=== PATIENT | male | born 1960 | race Caucasian/White ===

== ENCOUNTER 2018-08-11 07:30 | Inpatient (IN) ==
[2018-10-20] MEDS ORDERED: Sodium Chloride 0.9% 250 ML ONE (05:48)
[2018-10-20] MEDS ORDERED: LIDOCAINE W/ SODIUM BICARB 0.5 ML SYR ONE (05:48)
[2018-10-20] MEDS ORDERED: ceFAZolin Inj 2gm (Premix) 2 GM/50 ML BAG IV ONE ×3 (05:48→13:37)
[2018-10-20] MEDS ORDERED: Lactated Ringers 1,000 ML PRIMARY IV ONE ×2 (05:48→06:00)
[2018-10-20] MEDS ORDERED: Vancomycin Inj 1gm vial ONE ×2 (05:48→06:49)
[2018-10-20] MEDS ORDERED: Nasal Sanitizer POPSWAB ampule 3 AMP (Nozin) PREOP DOSE ENOS SCH (06:00)
[2018-10-20] MEDS ORDERED: LIDOCAINE W/ SODIUM BICARB 0.5 ML SYR SUBD ONE (06:00)
[2018-10-20] MEDS ORDERED: Sodium Chloride 0.9% vial 20 ML ONE (06:48)
[2018-10-20] MEDS ORDERED: Gentamicin Inj 40 MG/ML VIAL ONE (06:49)
[2018-10-20] MEDS ORDERED: BACITRACIN 50,000 UNIT VIAL IRRIG ONE ×2 (06:50→11:12)
[2018-10-20] MEDS ORDERED: BUPIVACAINE 0.25% W/ EPI - 10 ML VIAL ONE ×3 (06:56→08:14)
[2018-10-20 07:23] LABS: BILIRUBIN,URINE NEGATIVE (NEG); CLARITY,URINE CLEAR (CLEAR); COLOR,URINE YELLOW (Y); GLUCOSE, URINE (UA) NEGATIVE (NEG); OCCULT BLOOD,URINE NEGATIVE (NEG); PROTEIN,URINE NEGATIVE (NEG); UROBILINOGEN,URINE 0.2 EU/dL (0.2)
[2018-10-20 07:24] LABS: URINE SAMPLE TYPE CLEAN CATCH URINE
[2018-10-20] MEDS ORDERED: LIDOCAINE HCL 2 % 10 ML JELLY URO-JECT TOPICAL ONE (07:31)
[2018-10-20] MEDS ORDERED: PROPOFOL 10 MG/1 ML (200 MG/20 ML) VIAL IV ONE ×3 (07:33→12:22)
[2018-10-20] MEDS ORDERED: SUCCINYLCHOLINE CHLORIDE 20 MG/1 ML - 10 ML ONE (07:35)
[2018-10-20] MEDS ORDERED: KETAMINE HCL 100 MG/2 ML SYRINGE IV ONE (07:36)
[2018-10-20] MEDS ORDERED: ROCURONIUM 10 MG/1 ML - 5 ML VIAL IVP ONE (07:36)
[2018-10-20] MEDS ORDERED: Hetastarch 6% + NS 500 ML IV ONE (08:04)
[2018-10-20] MEDS ORDERED: TRANEXAMIC ACID 1,000 MG / 10 ML VIAL ONE (08:15)
[2018-10-20] MEDS ORDERED: DEXAMETHASONE PF 10 MG/1 ML VIAL ONE (08:16)
[2018-10-20] MEDS ORDERED: METOPROLOL TARTRATE 5 MG/5 ML VIAL ONE (08:17)
[2018-10-20] MEDS ORDERED: MAGNESIUM SULFATE ONE (08:17)
[2018-10-20] MEDS ORDERED: LIDOCAINE HCL 2 % 10 ML JELLY URO-JECT TOPICAL PRN (08:26)
[2018-10-20] MEDS ORDERED: VECURONIUM BROMIDE 10 MG VIAL ONE (08:49)
[2018-10-20] MEDS ORDERED: HYDROmorphone 2 MG/1 ML ONE ×3 (08:53→15:14)
[2018-10-20] MEDS ORDERED: Sodium Chloride 0.9% vial 10 ML ONE ×2 (11:12→13:20)
[2018-10-20] MEDS ORDERED: BUPivacaine Liposome/PF (Exparel) Inj 20ml vial INFIL ONE (13:21)
[2018-10-20] MEDS ORDERED: BUPivacaine Inj 0.25% PF - 10ml vial ONE (13:22)
[2018-10-20] MEDS ORDERED: ceFAZolin 1 GM VIAL IVP ONE (13:47)
[2018-10-20] MEDS ORDERED: KETOROLAC 30 MG/1 ML VIAL ONE (14:21)
[2018-10-20] MEDS ORDERED: HYDROmorphone 2 MG/1 ML IVP PRN ×2 (15:14→15:15)
--- NOTE | 2018-10-20 15:14 | CRNA.PROGR ---
Anesthesia Time - Procedure/Recovery Time Start Date: 10/20/18 End Date: 10/20/18 - Other Weight: 92.079 kg Height: 5 ft 10 in Body Mass Index (BMI): 29.1 Anesthesia Type: General Anesthesia : ET (pt with conjunctiva swelling, some face swelling post op secondary to position prone more than 8hrs)
[2018-10-20] MEDS ORDERED: PROMETHAZINE 25 MG/1 ML VIAL IM PRN ×2 (15:15→16:16)
[2018-10-20] MEDS ORDERED: fentaNYL Inj 100 MCG/2 ML VIAL IVP PRN (15:15)
[2018-10-20] MEDS ORDERED: LIDOCAINE W/ SODIUM BICARB 0.5 ML SYR SUBD PRN (15:15)
--- NOTE | 2018-10-20 15:15 | CRNA.PROGR ---
Anesthesia Recovery Phase I - Post Anesthesia Evaluation Patient's Condition on Arrival in Phase I: Stable Patient's Condition on Arrival in Phase II: Stable Pain Level: 5 (patient stable at PACU admit)
[2018-10-20] MEDS ORDERED: MAGNESIUM 400 MG/5 ML - 30 ML (MILK OF MAGNESIA) PO PRN (16:16)
[2018-10-20] MEDS ORDERED: DOCUSATE 100 MG CAPSULE PO PRN (16:16)
[2018-10-20] MEDS ORDERED: Ondansetron ODT Tab 4 MG TAB PO PRN (16:16)
[2018-10-20] MEDS ORDERED: MAGNESIUM CITRATE 296 ML SOLUTION PO PRN (16:16)
[2018-10-20] MEDS ORDERED: Fleet Enema 133ml RECTAL PRN (16:16)
[2018-10-20] MEDS ORDERED: BISACODYL 5 MG TABLET PO PRN (16:16)
[2018-10-20] MEDS ORDERED: ONDANSETRON 4 MG/2 ML VIAL IVP PRN (16:16)
[2018-10-20] MEDS ORDERED: oxyCODONE/APAP 7.5/325 Tab 1 TAB TAB PO PRN (16:16)
[2018-10-20] MEDS ORDERED: DIAZEPAM 10 MG/2 ML (5 MG/1 ML) CARPUJECT IVP PRN (16:16)
[2018-10-20] MEDS ORDERED: Metoclopramide Inj 10 MG/2 ML VIAL IVP PRN (16:16)
[2018-10-20] MEDS ORDERED: MORPHINE SULFATE 2 MG/1 ML IVP PRN (16:16)
[2018-10-20] MEDS ORDERED: Vancomycin-PHA to Dose IV SCH (16:16)
[2018-10-20] MEDS ORDERED: DIAZEPAM 10 MG TABLET PO PRN (16:16)
[2018-10-20] MEDS ORDERED: oxyCODONE-ACETAMINOPHEN 5-325 TAB PO PRN (16:16)
[2018-10-20] MEDS ORDERED: Prochlorperazine Edisylate Inj 10mg/2ml vial IVP PRN (16:16)
--- NOTE | 2018-10-20 17:16 | CONSULT ---
Consult Note - Consult Consult Date: 10/20/18 Reason for Consult: Other (Postoperative consultation Dr. Baca) Requesting Physician: Dr. Baca Primary Care Provider: Dr. Anoop Baca MD - History of Present Illness History of Present Illness: This is a 58 years old male with medical history significant for history of sleep apnea on CPAP at night, history of previous 2 back surgeries he had an MRI done last year which showed moderate degenerative disc disease at L1-L2 and L5- S1 there is multi-level lumbar spondylosis, facet arthropathy and hypertrophy there is large recurrent L4-5 herniated nucleus pulposus so he came in today to have transforaminal lumbar interbody and posterolateral instrumented fusion and was done by Dr. Baca. The hospitalist service were consulted for management medical issues. Patient was seen postoperatively. He was denying complaint. No nausea, no chest pain, no shortness of breath. No dizziness. Past Medical History Medical History: 1. History of sleep apnea on CPAP at night Surgical History: 1. History of 2 previous back surgeries Family History: Reviewed an Not Pertinent Past Social History: Smokes 2 packs a day, drinks 6 beers a day, no drugs. Tobacco Use: Current Every Day Smoker In the Past 12 Months, Have Used or Abuse Any of the Following Substance: None Review of Systems - Review of Systems All Systems: Reviewed & No Additional Complaints Except as Stated Medication / Allergies Home Medications: Home Medications Medication Instructions Recorded Confirmed Type cyclobenzaprine 5 mg tablet 5 mg PO TID PRN 05/07/18 10/20/18 History hydrocodone 5 mg-acetaminophen 325 1 tab PO QID PRN 05/07/18 10/20/18 History mg tablet Allergies/Adverse Reactions: Allergies Allergy/AdvReac Type Severity Reaction Status Date / Time No Known Allergies Allergy Verified 10/20/18 16:21 Exam - Vitals Vital Signs: Vital Signs Temperature 98.2 F Pulse Rate [Telemetry] 122 Pulse Rate 106 Respiratory Rate 12 Blood Pressure 107/75 Pulse Ox 96 Oxygen Flow Rate 3 liters nasal cannula Oxygen Delivery Method Room Air Height 5 ft 10 in Weight 203 lb - General General Appearance: No Acute Distress, Cooperative - Head Head Exam: Normal Inspection - Eye Eye Exam: POSITIVE: Normal Appearance - ENT ENT Exam: POSITIVE: Normal Exam - Neck Neck Exam: Normal Inspection - Respiratory Respiratory Exam: POSITIVE: Clear to Auscultation - Bilaterally - Cardiovascular Cardiovascular Exam: POSITIVE: RRR - GI/Abdominal GI/Abdominal Exam: POSITIVE: Normal Bowel Sounds, Non Tender, Non Distended, Soft, No Organomegaly - Rectal Rectal Exam: POSITIVE: Deferred - External Exam: POSITIVE: Deferred - Extremities Extremities Exam: POSITIVE: Normal Inspection Additional Extremities Exam Details: SCDs applied - Back Back Exam: POSITIVE: Normal Inspection - Neurological Neurological Exam: POSITIVE: Alert, Oriented x 3, CN II-XII Intact, No Facial Droop, Speech Intact / Clear - Psychiatric Psychiatric Exam: POSITIVE: Normal Affect Assessment and Plan - Patient Problems (1) History of back surgery Current Visit: Yes Status: Acute Comment: Patient status post lumbar fusion, he is denying complaints. will Provide supportive care and deal with complication if they develop. Currently patient is in no distress. Dr. Baca for wrote for pain medication. Regarding his drinking he said he never had DTs or withdrawal before will watch for symptoms of withdrawal. Code(s): Z98.890 - Other specified postprocedural states
[2018-10-20] MEDS: oxyCODONE/APAP 10/325 Tab 1 EACH TAB PO PRN ×2 (17:30→21:22)
[2018-10-20] MEDS: ceFAZolin Inj 1 GM in Sodium Chloride 0.9% 100 ML IV SCH (21:22)
[2018-10-21] MEDS: oxyCODONE/APAP 10/325 Tab 1 EACH TAB PO PRN ×6 (01:08→21:45)
[2018-10-21] MEDS: ceFAZolin Inj 1 GM in Sodium Chloride 0.9% 100 ML IV SCH (03:51)
--- NOTE | 2018-10-21 05:07 | GEN.OPNOTE ---
Operative Note Surgery Date: 10/20/18 Preoperative Diagnosis: 1. Status post work related injury. 2. Status post right L4-5 microlumbar discectomy - 11/2011. 3. Status post redo right L4-5 microlumbar discectomy - 06/09/2017. 4. Large recurrent right L4-5 herniated nucleus pulposus. 5. Focal advanced degenerative disc disease L4-5. 6. Focal advanced facet arthropathy/hypertrophy L4-5. Postoperative Diagnosis: 1. Status post work related injury. 2. Status post right L4-5 microlumbar discectomy - 11/2011. 3. Status post redo right L4-5 microlumbar discectomy - 06/09/2017. 4. Large recurrent right L4-5 herniated nucleus pulposus. 5. Focal advanced degenerative disc disease L4-5. 6. Focal advanced facet arthropathy/hypertrophy L4-5. Procedure: 1.) Partial redo L4 laminectomy with medial facetectomies and foraminotomies for decompression of the severe central canal, lateral recess, and neuroforaminal stenosis at the L4-5 level with removal of a massive recurrent right L4-5 disc herniation. (CPT code: 28809-81-42). 2.) Arthrodesis, combined posterolateral and posterior interbody technique, L4-5. (CPT code: 97686). 3.) Insertion 10 mm x 11 mm x [address] titanium lumbar interbody cage filled in the center with autograft into the L4-5 interspace for fusion of the L4-5 interspace. (CPT code: 21763). 4.) Non- segmental posterolateral instrumentation L4-5 using the [employer] Mallorie 3 pedicle screw and bill system. (CPT code: 05291). 5.) Use of autograft, harvested through the same incision, cleaned of soft tissue and morselized, for interbody and posterolateral fusion. (CPT code: 44571). 6.) Use of 20cc [employer] Vitoss Bimodal synthetic bone fusion product/promotor (implantable allograft), 2 cc of Tamika Biologics Active Matrix (implantable allograft), and 30 cc [employer] BIO DBM Putty Plus cancelleous (implantable allograft) for interbody and posterolateral fusion. (CPT code: 70912). 7.) Use of the [employer] computer assisted neuronavigation system for cannulization of the L4 and L5 pedicles bilaterally for the subsequent placement of the L4 and L5 pedicle screws bilaterally. (CPT code: 02199). 8.) Use of intra-operative fluoroscopy for localization of the correct surgical level and for final confirmation of the position of the L4-5 intervertebral cage and final confirmation of the position of the L4-5 posterolateral hardware elements. 9.) Use of intra-operative neuromonitoring including free running EMG's, triggered EMG's, and SSEP's. Surgeon: Anoop Baca MD Electroencephalograph Technician: MIGUEL Hunt Anesthesia Provider: Dank Ellsworth MD Anesthesia Type: General Estimated Blood Loss (mL): 600 Fluids: See anesthesia record Pathology: None Indications: Mr. Aguiar is a 58 year old gentleman status post a work injury. For persistent symptoms from his work injury, Dr. Mejia performed a right L4-5 microlumbar discectomy on 11/2011. He had a subsequent re-rupture of the the disc and underwent a redo right L4-5 microlumbar discectomy on 06/09/17 that I performed. Mr. Aguiar has continued to have low back and right leg pain. He has tingling and numbness in his right leg down into his toes. He states he has weakness in his right leg, he is only able to stand for 10-15 minutes before needing to sit and rest. Mr. Aguiar's lumbar MRI demonstrates moderate degenerative disc disease at L1-2 and L5-S1, mild degenerative disc disease at L2-3 and L3-4, but with advanced focal degenerative disc disease at L4-5. There is multilevel lumbar spondylosis, with facet arthropathy and hyperthrophy mild at L2-3, moderate at L3-4, advanced at L4-5, mild to moderate at L5-S1. There is a large recurrent right L4-5 herniated nucleus propulsis filling the lateral recess and producing overall moderate spinal canal stenosis at this level. Mr. Aguiar was scheduled for his surgery on 08/11/18, but his pre-op blood work showed he had a low platelet level. His surgery was cancelled until he could follow up with his primary. Mr. Aguiar presents today for his surgical procedure after being cleared again for a L4-5 transforaminal lumbar interbody fusion and posterolateral instrumented fusion. Findings: 1.) Massive recurrent right L4-5 herniated nucleus propulsis. 2.) Severe L4-5 central canal stenosis. 3.) Bilateral L4-5 facet arthropathy and hypertrophy. 4.) Thickened ligamentum flavum L4-5. Complications: None Operative Summary: Mr. Aguiar was met in the pre-operative area. His surgical history and physical in his chart was reviewed. I reviewed with him the procedure to be performed and we were in agreement on the procedure and this matched what was written on the patient's consent form. I answered any questions that he or his had before he was taken back to the operating room suite. Mr. Aguiar was brought back to the operating room suite. He was put under general anesthesia and intubated by the anesthesia staff. He had a Evans catheter placed in his bladder for the procedure. He had pneumatic compression hose placed on his lower legs bilaterally. Mr. Aguiar was carefully rolled over onto the Arian surgical table. His arms were gently positioned upwards with his shoulders abducted less than 90. His arms were well-padded with foam padding on top of the padding the surgical armboards. The region of his chest and axilla was checked bilaterally to make sure that there were no pressure points over the region of the brachial plexus bilaterally. His nipples were checked be below the chest pad of the Arian table with no pressure points. All bony prominences were well padded. His Evans catheter was checked be free from kinks. His pneumatic compression hose was attached and pneumatic compression device. The C-arm fluoroscopy unit was used to help determine the extension needed to the scar from Mr. Aguiar' previous surgeries for the approach to the intended surgical level. The skin was marked with a skin marker incorporating his scar from his previous surgeries and crosshatches were made across the marked incision the marker as well. Mr. Aguiar was prepped and draped in the usual and standard fashion. He was given 900 mg of Cleocin and a gram of vancomycin IV for perioperative antibiosis. He was given 10 mg of Decadron IV. A standard surgical timeout was performed identifying the correct patient, the correct procedure, and the correct equipment being available for the procedure. The intended skin incision was injected subcutaneously with quarter percent Marcaine with 1 in 200,000 epinephrine. 20 mL of local anesthetic was used. The skin was incised with a 10 blade scalpel and all dermal and superficial bleeding points were controlled with bipolar cautery. Dissection was continued down through the subcutaneous tissue/scar tissue to the lumbar fascia. The lumbar fascia was incised along the borders of the spinous processes and subperiosteal dissection was performed down the spinous processes and out over the lamina with Bovie cautery. When the inferior aspect of the lamina was identified a [place] 4 was placed underneath the lamina and the level was localized with lateral fluoroscopy. Continued subperiosteal dissection was performed until the final exposure was of the inferior aspect the L3 lamina of the L4 lamina and the L5 lamina; are was taken not to enter the pervious hemilaminotomy/medial facetectomy on the right. The dissection was continued laterally over the L3-4 and L4-5 and L5-S1 facet joints and out laterally over the L4 and L5 transverse processes. Cerebellar Gelpi retractors were placed for self-retaining retraction. Soft tissue was cleaned over the posterior aspect of the spine using Bovie cautery as well as a large Leksell rongeur. Extensive decortication of the L4 and L5 transverse processes as well as the lateral aspect of the L3-4 facet joint and the lateral and posterior aspect of the L4-5 facet joint after removing the hypertrophied posterior aspect of the L4-5 facet joint with a large Leksell rongeur bilaterally was performed. The L5 lamina was decorticated as well. All decortication was performed with a high-speed [employer] electric drill with a matchstick bit. The bone dust created was collected and saved to be used as autograft for the fusion portion of the procedure. The Maryjo neuro navigation reference arc was securely attached to the L3 spinous process and a spin was performed with the [employer] 3-D fluoroscopy unit. The Tamaroa neuro navigation pedicle probe was then used to cannulate the L4 and L5 pedicles bilaterally. A Jamshidi needle was then inserted into the left L4 pedicle and 5cc of vertebral body bone marrow was collected and used to saturate 10 mL of the Tamaroa Vitoss synthetic bone product (with the Vitoss also saturated with 5 cc of Tamika Biologic Active Matrix (implantable allograft)), intended for the posterior lateral fusion. The internal aspects of the L4 and L5 pedicles were palpated bilaterally with a small ball-tip instrument. The pedicles were then tapped with the appropriate size Tamaroa Zay 3 pedicle tap. The internal aspect of the pedicles were palpated with a small ball-tip instrument again. The pedicle screws were then placed. 6.5 x 60 mm pedicle screws were placed into the L4 and L5 pedicles bilaterally. Mr. Adair bone was somewhat soft but the pedicle screws obtained good purchase in the pedicle and vertebral body bone at each level bilaterally. The pedicle screws were then interrogated with triggered EMGs all demonstrating sufficiently high impedance with the lowest impedance recording being 26 mm indicating that all the pedicle screws were not in close proximity to nerve structures. Another spin was performed with the [facility] 3-D fluoroscopy unit providing further confirmation that the pedicle screws were indeed confined within the confines of the pedicles at each level bilaterally and that the pedicle screws were all bi- cortical or nearly bi-cortical in purchase as intended. Attention was turned to the decompression portion of the procedure. The caudal aspect of the L4 spinous process was removed with a large Leksell rongeur. The L4 lamina was thinned down with the same instrument. A partial laminectomy of L4 with medial facetectomies and foraminotomies bilaterally was then performed with the [employer] high-speed drill with a matchstick bit as well as with various size Kerrison punches. Tedious dissection was performed to de-tether the thecal sac, exiting L4, and transversing L5 nerve root on the right from their attachments to the bony aspects of the canal from the scar tissue from his two previous hemilaminotomies, medial facetectomies, and discectomies on this side at this level. During the dissection a massive recurrent right L4-5 herniated nucleus propulsis was discovered markedly displacing the thecal sac a nd transversing L5 nerve root posteriorly. The base of the pseudocapsule aound the recurrent disc herniation was punctured with a nerve hook and large fragments of disc material was removed from the pseudocapsule, once all of this disc was removed, disc was removed from the disc space proper with pituitary rongeurs. With the large recurrent disc herniation removed, the thecal sac and the transversing L5 nerve root returned to there normal position within the spinal canal. While dissecting the scar tissue off of the right exiting L4 nerve root there was extruded synovial tissue in the lateral recess/proximal neuroforamen which was removed, decompressing the nerve. The medial facetectomy on the left was extended laterally to provide the proper exposure needed for the interbody fusion intended for this level. The lateral extension of the medial facetectomy was performed with a high-speed drill with a matchstick bit. A [place] 4 instrument was used to carefully dissect the soft tissue adjacent to the takeoff of the L5 nerve root identifying the L4-5 disc space. The Farshad nerve root retractor was used to gently retract the thecal sac and the takeoff the L5 nerve root, uncovering a prominent subligamontous disc herniation on this side. Epidural veins over the disc space were coagulated with bipolar cautery turned down to a low setting and then cut with microscissors. An annulotomy was performed in the L4-5 disc space with a 15 blade scalpel and disc material being removed with a pituitary rongeur. The subligamentous disc material causing the herniation was removed. Additional disc and cartilaginous endplate was loosened in the disc space using the K2 disc space juan david in 1 mm increments from 7 mm disc space shaver to a 9 mm disc space shaver. Between the disc space juan david additional disc material was removed from the interspace using pituitary rongeur. The large Nuris down-biting curet was used to loosen disc laterally in the L4-5 disc space bilaterally with the fragments being removed with a pituitary rongeur. The large Nuris down-biting curet was then used to decorticate the inferior L4 endplate and the superior L5 endplate in the L4-5 interspace. The interspace was then irrigated with bacitracin irrigation. Approximately 3-3.5 cc of Maryjo BIO DBM Putty Plus cancelleous (allograft) was then placed in the interspace and moved anteriorly with a bone tamp. The interspace was then sized for the appropriate size lumbar interbody cage. A 10 mm x 11 mm x [address] titanium lumbar interbody cage was selected and filled in the center with autograft and inserted into the L4-5 interspace using the fur blowing machine attendant. The cage was gently countersunk and rotated with a bone tamp and mallet. The cage obtained good purchase between the L4 and L5 endplates. The final position of the intervertebral cage was confirmed with lateral fluoroscopy. Attention was turned back to the leads rotation portion of the procedure. A 6.0 mm x 35 mm pre-bent Tamaroa Zay 3 titanium bill was selected and placed in the [place]ips of the L4 and L5 pedicle screws bilaterally. Set screws were placed over the rods in the t[place]ips of each of the pedicle screws which were tightened down hand tight initially and then tightened down to their final tightness using the torque/counter torque device. The surgical site was irrigated with hydrogen peroxide solution. The surgical site was then pulse lavaged with 3 L of vancomycin/bacitracin/gentamicin solution. The paraspinous musculature was retracted and 10 mL of Maryjo Vitoss Bimodal synthetic bone product (allograft) saturated with a 5 mL of vertebral body bone marrow and 5 cc of Tamika Biologics Active Matrix was then placed lateral to the hardware construct on each side from the L4 transverse process to over the L5 transverse process bilaterally. The remaining autograft was mixed with the remaining approximately 17 mL of Tamaroa BIO DBM Putty Plus cancelleouus which was then split with half of this product being placed lateral to the hardware construct over the bone chips and Vitoss synthetic bone product from the L4 transverse process to the L5 transverse process bilaterally. An additional 10 cc of Maryjo BIO DBM Putty Plus with cancellous was then split placing 5cc of this product lateral to the hardware on each side from the L4 transverse process to the L5 transverse process. The canal lateral recesses were inspected for any bone chips and any identified were removed with forceps. The canal lateral recesses were then irrigated with a small amount bacitracin irrigation which was subsequently removed with suction. A piece of compressed Gelfoam was then placed across the canal. FloSeal hemostatic agent was then placed over the Gelfoam. The lumbar fascia was closed tightly with #1 Vicryl suture in an interrupted fashion. The surgical site was irrigated again with bacitracin irrigation. The deep subcutaneous tissue and fascia was re-approximated with 2-0 Vicryl suture in an interrupted fashion. 20 mL of Exoperel deluded with 10 mL of 1/4 percent Marcaine was then injected all around the incision in the subcutaneous tissue. The same was then done with the remaining 3 cc of Tamika Biologics Active Matrix. The dermis and superficial subcutaneous tissue was reapproximated with 3-0 Vicryl suture in an inverted interrupted fashion. The Ioban drape was pulled back from the skin edges and the final layer of closure was performed surgical stainless steel ca. The incision was cleansed with bacitracin soaked sponge and then dried with sterile dry sponge. The incision was then dressed with a Mepilex dressing after using skin prep around the incision. All surgical drapes removed from Mr. Aguiar. He was carefully rolled over onto the PACU stretcher. He was awoken and extubated by the anesthesia staff. He was taken the recovery room in stable condition. All surgical counts reported as correct by the scrub and circulating personnel. A physician's assistant food service manager, Mrs. Vani Becerril PA-C, assisted with the procedure including the exposure and closure portions of the procedure. She provided irrigation and suctioning throughout the procedure. She skillfully and carefully retracted the nerve structures during the more critical portions of the procedures such as the discectomy and intervertebral cage placement portions of the procedure.
[2018-10-21 05:11] LABS: BASOPHILS # (AUTO) 0.01 10*3/UL; BASOPHILS % (AUTO) 0.1 % (0-1); EOSINOPHILS # (AUTO) 0.07 10*3/UL; Hematocrit [HCT] 35.5 % (42.0-52.0); Hemoglobin [HGB] 12.1 g/dL (14.0-18.0); MEAN CORPUSCULAR HEMOGLOBIN 35.9 PG (27-31); MEAN CORPUSCULAR HGB CONC 34.1 g/dL (33-37); MEAN CORPUSCULAR VOLUME 105.3 FL (80-90); MEAN PLATELET VOLUME 11.5 FL (7.4-12.2); MONOCYTES # (AUTO) 0.49 10*3/UL (0.3-0.8); MONOCYTES % (AUTO) 6.8 % (5-15); NEUTROPHILS # (AUTO) 5.37 10*3/UL; NEUTROPHILS % (AUTO) 74.1 % (50-80); RED BLOOD COUNT 3.37 10^6/uL (4.70-6.10)
[2018-10-21 05:15] LABS: PLATELET MORPHOLOGY COMMENT NORMAL MORPHOLOGY (NORM); RBC MORPHOLOGY COMMENT NORMAL MORPHOLOGY (NORM); WBC MORPHOLOGY COMMENT NORMAL MORPHOLOGY (NORM)
[2018-10-21 05:17] LABS: BLOOD UREA NITROGEN 9 mg/dL (7-22); BUN/CREATININE RATIO 8.18 (6-20)
--- NOTE | 2018-10-21 05:17 | NEURO.PROG ---
Subjective Post Op Day: 0 Evans Catheter: Yes Flatus: Yes Diet: Regular Ambulating: Yes Additional Details: LATE ENTRY Patient seen in med/surg room last evening at approximately 8:00 pm. Lying comfortably in surgical bed. Surgical pain. Right leg better. Strength improved right leg; dorsiflexion/plantarflexion full/strong bilaterally. PLAN: 1.) Continue post-operative antibiotics. 2.) Continue post-operative pain control. 3.) Advance diet. 4.) Mobilize. Objective : Data - Vital Signs Vital Signs and I&O: Vital Signs - Last Taken Temperature 97.1 F 10/21/18 04:13 Pulse Rate 84 10/21/18 04:13 Respiratory Rate 18 10/21/18 04:13 Blood Pressure 92/58 10/21/18 04:13 Pulse Ox 94 10/21/18 04:59 Intake and Output (24hr x 4 totals) 10/18/18 10/19/18 10/20/18 10/21/18 05:59 05:59 05:59 05:59 Intake Total 6815 / 6815 Output Total 1655 / 1655 Balance 5160 / 5160
--- NOTE | 2018-10-21 06:45 | NEURO.PROG ---
Subjective Post Op Day: 1 Pain Management: PO Evans Catheter: No Diet: Regular Ambulating: Yes Additional Details: Mr. Aguiar is awake and alert. He says his right leg and foot symptoms are improved. His reduced preop dorsi flexion on the right is improved. He ambulated in the ball twice after surgery yesterday. His pain is controlled with po pain meds. His incision is dry and intact and his drainage was 210ml in 12 hours. Will plan to keep the drain today and evaluate later and in am. In view of his thrombocytopenia we will keep his Vena Flow cuffs in place and encourage frequent ambulation. Plan: Mobilize, monitor hemovac drainage and start Flexeril. Objective : Data - Labs CBC and BMP: 10/22/18 04:25 10/21/18 03:55 - Vital Signs Vital Signs and I&O: Vital Signs - Last Taken Temperature 97.1 F 10/21/18 04:13 Pulse Rate 84 10/21/18 04:13 Respiratory Rate 18 10/21/18 04:13 Blood Pressure 92/58 10/21/18 04:13 Pulse Ox 94 10/21/18 04:59 Intake and Output (24hr x 4 totals) 10/19/18 10/20/18 10/21/18 10/22/18 05:59 05:59 05:59 05:59 Intake Total 6815 / 6815 Output Total 1735 / 1735 Balance 5080 / 5080
[2018-10-21] MEDS ORDERED: CYCLOBENZAPRINE 10 MG TABLET PO PRN ×2 (06:46→06:47)
--- NOTE | 2018-10-21 06:52 | NEURO.PROG ---
Subjective Additional Details: A correction on my earlier post op note stated TTP which should have read ITP Objective : Data - Labs CBC and BMP: 10/21/18 03:55 10/21/18 03:55 - Vital Signs Vital Signs and I&O: Vital Signs - Last Taken Temperature 98.1 F 10/21/18 06:42 Pulse Rate 83 10/21/18 06:42 Respiratory Rate 17 10/21/18 06:42 Blood Pressure 104/67 10/21/18 06:42 Pulse Ox 94 10/21/18 06:42 Intake and Output (24hr x 4 totals) 10/19/18 10/20/18 10/21/18 10/22/18 05:59 05:59 05:59 05:59 Intake Total 6815 / 6815 Output Total 1735 / 1735 Balance 5080 / 5080
[2018-10-21] MEDS: PANTOPRAZOLE 40 MG TABLET PO SCH (07:12)
[2018-10-21] MEDS: CYCLOBENZAPRINE 10 MG TABLET PO SCH ×3 (09:10→20:12)
[2018-10-21] MEDS ORDERED: FOLIC ACID 1 MG TABLET PO ONE (11:18)
--- NOTE | 2018-10-21 11:29 | PDOC(PROG) ---
Date of Service: 10/21/18 Time of Service: 11:20 Interval History: Subjective Patient complain from pain in his back and right hip where he was laying on his side. He just got up and he was planning to work with physical therapy. He is denying other symptoms. Objective : Data - Labs CBC and BMP: 10/21/18 03:55 10/21/18 03:55 Objective : Exam - General General Appearance: No Acute Distress, Cooperative - Head Head Exam: Normal Inspection - Eye Eye Exam: Normal Appearance - ENT ENT Exam: Normal Exam - Neck Neck Exam: Normal Inspection - Respiratory Respiratory Exam: Clear to Auscultation - Bilaterally - Cardiovascular Cardiovascular Exam: RRR - GI/Abdominal GI/Abdominal Exam: Normal Bowel Sounds, Non Tender, Non Distended, Soft - Rectal Rectal Exam: Deferred - External Exam: Deferred - Extremities Extremities Exam: Normal Inspection - Back Additional Back Exam Details: He is Wearing a brace. - Neurological Neurological Exam: Alert, Oriented x 3, CN II-XII Intact - Psychiatric Psychiatric Exam: Normal Affect Assessment and Plan - Patient Problems (1) History of back surgery Current Visit: Yes Status: Acute Comment: Continue current pain medication, continue PT OT. Further management per Dr. Baca. Code(s): Z98.890 - Other specified postprocedural states (2) Thrombocytopenia Current Visit: Yes Status: Acute Comment: His platelets on the low side I don't have a previous level but apparently he had a previous measurement and was on the low side but he only told me this today for the first time and he saw an oncologist in [place] who did blood tests and according to him there were negative. This may be secondary to his alcohol intake if what he told me his correct. Will write for folic acid supplment. Code(s): D69.6 - Thrombocytopenia, unspecified
--- NOTE | 2018-10-21 15:40 | PT.PROG ---
Progress Note Progress Note: S. Patient stated that he is feeling good overall. O. Patient performed log roll then donned his brace, Patient ambulated 150 feet then ascended and descended 4 stairs then ambulated 300 feet around the nurses station and back to his room where he was left in his chair with alarm and call light. A. Patient tolerated ambulation and stair training well. He required stand by guard assist. P. Patient has met All goals at this time.
[2018-10-21 16:17] VITALS: RESP 20
--- NOTE | 2018-10-21 16:43 | PTI REPORT ---
Thank you for the referral of Zaire Aguiar. He was seen on 10/21/18 for an inpatient evaluation status post lumbar fusion. SUBJECTIVE: The patient is a 58-year-old male. The patient reports he is having post operative pain but is now having more hip pain due to lying in bed for a prolonged period of time and requests that he be able to get up and walk. This is his third back surgery and he is very familiar with all precautions as well as the back bracing. He also states he is not really comfortable in the back brace that was issued to him today and he is hoping that he will be able to switch at home to one of his thinner, less aggressive back braces from his recent laminectomy. PAST MEDICAL HISTORY: Past medical history can be found in the patient's medical record. OBJECTIVE FINDINGS: General observations: The patient demonstrated the ability to don and doff his back brace as well as adjust it independently. The patient was able to recall his restrictions of no bending, lifting over 8 pounds, or twisting. Pain: The patient reports a pain level currently in his back and his hip at 8/10 on the verbal analog scale (0=no pain, 10=worst pain), but he did just receive pain medication. Bed mobility: The patient was able to perform bed mobility with appropriate log rolling from supine to edge of bed with stand by assistance only. Ambulation: The patient was able to ambulate 10 minutes continuously with the use of back brace, gait belt, and contact guard assistance to stand by assistance without any risk of falls or loss of balance. Activities of daily living: The patient demonstrated the ability to perform toileting ADLs with modified independence with assistance of the IV pole only. ASSESSMENT: Problem List: Recent lumbar fusion Physical Therapy Goals: To be met by discharge from inpatient: Patient will be able to perform all bed mobility independently with proper log rolling technique. Patient will remember and recall and follow his surgical precautions. Patient will be able to don and doff his back brace independently and demonstrate independence in use. Patient will be able to ambulate over 300 feet for community ambulation. Patient will be able to ascend and descend a flight of stairs for safety to return to home. TREATMENT PLAN: Patient will be seen B.I.D during the week and one time per day over the weekend as an inpatient to address the above goals and objectives. INITIAL TREATMENT: Treatment today consisted of the initial evaluation followed by issuing the patient the back brace and reviewing donning/doffing and adjustment of the back brace. We also reviewed his precautions. The patient ambulated x10 minutes consistently. The patient was also able to perform toileting ADLs with modified independence. Following completion of therapy the patient was supine in bed with bed alarm set and call light within reach. MTDD
[2018-10-22] MEDS: oxyCODONE/APAP 10/325 Tab 1 EACH TAB PO PRN ×3 (01:55→12:27)
[2018-10-22 04:44] LABS: BASOPHILS # (AUTO) 0.02 10*3/UL; BASOPHILS % (AUTO) 0.3 % (0-1); EOSINOPHILS # (AUTO) 0.15 10*3/UL; EOSINOPHILS % (AUTO) 2.4 % (0-8); Hematocrit [HCT] 34.1 % (42.0-52.0); Hemoglobin [HGB] 11.6 g/dL (14.0-18.0); LYMPHOCYTES # (AUTO) 1.49 10*3/uL; MEAN CORPUSCULAR HEMOGLOBIN 35.5 PG (27-31); MEAN CORPUSCULAR VOLUME 104.3 FL (80-90); MEAN PLATELET VOLUME 10.8 FL (7.4-12.2); NEUTROPHILS # (AUTO) 4.06 10*3/UL; NEUTROPHILS % (AUTO) 65.1 % (50-80); RED BLOOD COUNT 3.27 10^6/uL (4.70-6.10)
[2018-10-22 05:31] LABS: PLATELET MORPHOLOGY COMMENT NORMAL MORPHOLOGY (NORM); RBC MORPHOLOGY COMMENT SEE COMMENTS (NORM); WBC MORPHOLOGY COMMENT NORMAL MORPHOLOGY (NORM)
[2018-10-22] MEDS: PANTOPRAZOLE 40 MG TABLET PO SCH (06:49)
[2018-10-22] MEDS ORDERED: FOLIC ACID 1 MG TABLET PO SCH (09:00)
[2018-10-22] MEDS ORDERED: Multivitamin Tab 1 TAB PO SCH (09:00)
[2018-10-22 09:21] VITALS: O2SAT 93
[2018-10-22] MEDS: CYCLOBENZAPRINE 10 MG TABLET PO SCH ×2 (09:50→14:51)
--- NOTE | 2018-10-22 11:12 | PT.PROG ---
Progress Note Progress Note: S. Patient stated that he is feeling good this morning. O. Patient ambulated 300 feet around the nurses station and back to his room where he performed log roll to get back into bed Patient was left with alarm and call light. A. Patient tolerated ambulation well, he was able to ambulate and perform log roll independently. P. Patient has met all goals at this time.
[2018-10-22 14:25] VITALS: BP 132/79; TEMP 97.7
--- NOTE | 2018-10-22 15:31 | OTI REPORT ---
Thank you for the referral of Zaire Aguiar. He was seen on 10/22/18 for an occupational therapy inpatient evaluation status post lumbar fusion. SUBJECTIVE: The patient is a 58-year-old male who is from [place]. Prior to admission he was struggling a little bit with dressing himself secondary to back pain. He does have a higher toilet that he says he can get on and off easily. He also has a shower chair. The patient reports he is mainly going to be wearing slippers, so he is not going to need the shoe horn. He will be going home this afternoon. PAST MEDICAL HISTORY: Past medical history can be found in the patient's medical record. OBJECTIVE FINDINGS: General observations: The patient was educated in his back precautions. Bed mobility: The patient was able to transfer from side lying to sitting after raising the head of the bed up with a log roll. The patient was able to transfer from sit to supine with log roll. Activities of daily living: The patient was issued a keno writer and a sock aide. The patient used a keno writer to doff socks and don pants. He then donned his socks with the sock aide. ASSESSMENT: The patient would benefit from adaptive devices. He was able to state his back precautions and demonstrate use of adaptive devices in order to dress self while following precautions. TREATMENT PLAN: Patient will be seen for initial evaluation only. He will more than likely be discharged this afternoon. INITIAL TREATMENT: Treatment today consisted of the initial evaluation activities only. CHANO
--- NOTE | 2018-10-22 15:44 | PDOC(PROG) ---
Date of Service: 10/22/18 Time of Service: 10:00 Interval History: Subjective Patient denying symptoms. Pain seemed to be controlled. He had his drain removed. Objective : Data - Labs CBC and BMP: 10/22/18 04:25 10/21/18 03:55 Objective : Exam - General General Appearance: No Acute Distress, Cooperative - Head Head Exam: Normal Inspection - Eye Eye Exam: Normal Appearance - ENT ENT Exam: Normal Exam - Neck Neck Exam: Normal Inspection - Respiratory Respiratory Exam: Clear to Auscultation - Bilaterally - Cardiovascular Cardiovascular Exam: RRR - GI/Abdominal GI/Abdominal Exam: Normal Bowel Sounds, Non Tender, Non Distended, Soft, No Organomegaly - Rectal Rectal Exam: Deferred - External Exam: Deferred - Extremities Extremities Exam: Normal Inspection - Back Additional Back Exam Details: Dressing applied to the back which is dry and clean - Psychiatric Psychiatric Exam: Normal Affect - Integumentary Integumentary Exam: Normal Color Assessment and Plan - Patient Problems (1) History of back surgery Status: Acute Comment: Management. Dr. Baca. There is a plan for him to go home today. He is doing well with physical therapy and they cleared him to go home. Code(s): Z98.890 - Other specified postprocedural states (2) Thrombocytopenia Status: Acute Comment: He has a history of thrombocytopenia, this need to be followed up later on as an outpatient. Maybe related to his alcohol. No evidence of bleeding. Code(s): D69.6 - Thrombocytopenia, unspecified
--- NOTE | 2018-11-02 11:06 | NEURO.DC ---
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 Status post right L4-5 microlumbar discectomy 2. Status post redo right L4-5 microlumbar discectomy Discharge Diagnosis: Same Primary Surgery and Date: Partial redo laminectomy L4, facetectomies and foraminotomies for decompression of severe central canal stenosis. Arthrodesis L4-5 Hospital Course: Mr Aguiar was admitted to [facility] [place] to undergo the above noted procedure. He was taken to the recovery room in stable condition and progressed to Med/Surg. His post op course was uncomplicated. He had improved right leg strength and full dorsi and plantar flexion on his first post operative day. He passed all physical therapy milestones and was ready for discharge on his second post op day. At the time of discharge he was ambulating independently. His incision was dry and intact. He was given post op instructions regarding activity and incision care. He was given a follow up appointment in Dr. Baca's clinic on November 05. Discharge Medications: Discharge Medications cyclobenzaprine 5 mg tablet 5 mg PO TID PRN 05/07/18 [History] hydrocodone 5 mg-acetaminophen 325 mg tablet 1 tab PO QID PRN 05/07/18 [History] Cyclobenzaprine HCl [Flexeril] 10 mg PO TID #90 tab 10/22/18 [Rx] oxyCODONE/APAP 10/325 Tab [Percocet 10/325 Tab] 1 - 2 ea PO Q4H PRN #100 tab 10/22/18 [Rx] Follow-Up: Anoop Baca [Primary Care Provider] - 11/05/18 11:30 am (In Dr. Baca's [facility]) Discharge Instructions Provided to Patient / Family: Oxycodone/Acetaminophen (By mouth), Cyclobenzaprine (By mouth), Lumbar Spinal Fusion (GEN) Exam - Vitals Vital Signs: Vital Signs Temperature 97.7 F Temperature Source Temporal Artery Scan Pulse Rate [Pulse Oximeter] 89 Pulse Rate [Telemetry] 93 Pulse Rate 106 Respiratory Rate 20 Blood Pressure [Left Arm] 132/79 Blood Pressure [Right Arm] 138/89 Blood Pressure 107/75 Pulse Ox 93 Oxygen Flow Rate 1 Oxygen Delivery Method Room Air Height 5 ft 10 in Weight 96.615 kg
--- NOTE | 2018-11-02 11:33 | NEURO.DC ---
Discharge Summary Admit Date: 10/20/18 Discharge Medications: Discharge Medications cyclobenzaprine 5 mg tablet 5 mg PO TID PRN 05/07/18 [History] hydrocodone 5 mg-acetaminophen 325 mg tablet 1 tab PO QID PRN 05/07/18 [History] Cyclobenzaprine HCl [Flexeril] 10 mg PO TID #90 tab 10/22/18 [Rx] oxyCODONE/APAP 10/325 Tab [Percocet 10/325 Tab] 1 - 2 ea PO Q4H PRN #100 tab 10/22/18 [Rx] Follow-Up: Anoop Baca [Primary Care Provider] - 11/05/18 11:30 am (In Dr. Baca's [facility]) Discharge Instructions Provided to Patient / Family: Oxycodone/Acetaminophen (By mouth), Cyclobenzaprine (By mouth), Lumbar Spinal Fusion (GEN) Exam - Vitals Vital Signs: Vital Signs Temperature 97.7 F Temperature Source Temporal Artery Scan Pulse Rate [Pulse Oximeter] 89 Pulse Rate [Telemetry] 93 Pulse Rate 106 Respiratory Rate 20 Blood Pressure [Left Arm] 132/79 Blood Pressure [Right Arm] 138/89 Blood Pressure 107/75 Pulse Ox 93 Oxygen Flow Rate 1 Oxygen Delivery Method Room Air Height 5 ft 10 in Weight 96.615 kg
== END 2018-10-22 15:16 | disposition home or self-care (01) | DRG 460 ==
LOC: OPS 10-20 06:12 → MED/SURG 10-20 15:21
PROVIDERS: ADMIT Neurological Surgery; ATTEND Neurological Surgery